=== PATIENT | female | born 1985 | race Caucasian/White ===

== ENCOUNTER → 2016-05-12 | Outpatient (CLI) | payer MEDICAID, OTHER ==
[~2016-05-12] MED LIST: HUMUINJ5 SC; INSU100V3 SC; PERC5TAB12 PO
== END ==
LOC: HPND 09:38
DX: O99.212 Obesity complicating pregnancy, second trimester (principal); O34.212 Maternal care for vertical scar from previous cesarean delivery
CPT/HCPCS: 76811

== ENCOUNTER → 2016-06-09 | Outpatient (CLI) | payer MEDICAID | LOC: HPND 13:22 | DX: O99.212 Obesity complicating pregnancy, second trimester (principal); O24.410 Gestational diabetes mellitus in pregnancy, diet controlled; Z68.34 Body mass index [BMI] 34.0-34.9, adult; Z3A.26 26 weeks gestation of pregnancy | CPT/HCPCS: 76816 ==